=== PATIENT | male | born 1955 | race Caucasian/White ===

== ENCOUNTER → 2019-11-23 | Outpatient (CLI) | payer OTHER | END | disposition home or self-care (01) | LOC: LABWHC1 10:57 | PROVIDERS: ATTEND Urology | DX: N40.1 Benign prostatic hyperplasia with lower urinary tract symptoms (principal); N13.8 Other obstructive and reflux uropathy | CPT/HCPCS: 36415; 84153 ==

== ENCOUNTER → 2020-10-02 | Outpatient (CLI) | payer OTHER ==
--- NOTE | 2020-10-02 14:51 | ECHOS ---
STRESS ECHOCARDIOGRAM DATE OF SERVICE: INDICATIONS: Abnormal EKG BASELINE HEART RATE: 68 BASELINE BLOOD PRESSURE: 136/67 MAXIMUM HEART RATE: 142 MAXIMUM BLOOD PRESSURE: 207/78 85% MPHR: 133 100% MPHR: 156 METS: 10.5 MAXIMUM STAGE REACHED: III TOTAL EXERCISE TIME: 9:10 RESULTS: Baseline rhythm is a sinus mechanism, rate of 68, normal axis and intervals. Normal echocardiogram. Baseline blood pressure 136/67 mmHg. Patient exercised on Zion protocol for 9 minutes 10 seconds reaching peak rate 142 beats per minute which is equal to 90% maximum predicted heart rate. Peak blood pressure 203/87 mmHg. The test was terminated secondary to fatigue. There was no chest pain. Electrocardiograph monitoring revealed no evidence of diagnostic ischemic ST deviation. FINDINGS: Baseline echocardiogram revealed normal wall motion. At peak exercise, there was normal wall motion augmentation with no hypokinesis or dyskinesis. CONCLUSION: 1. Good exercise tolerance with normal electrocardiograph response to exercise. 2. Normal stress echocardiogram with no evidence of stress-induced ischemia. MMODL / IJN: [id number] /
== END | disposition home or self-care (01) ==
LOC: RADNMMAIN 09:10
PROVIDERS: ATTEND Family Medicine
DX: R94.31 Abnormal electrocardiogram [ECG] [EKG] (principal)
CPT/HCPCS: 93351

== ENCOUNTER 2021-11-26 17:10 | Emergency (ER) | payer BC, MEDICARE ==
[2021-11-26 17:29] VITALS: RESP 18; TEMP 98
--- NOTE | 2021-11-26 18:09 | ED ---
General Adult HPI - General Chief complaint: Urogenital Stated complaint: Male , unable to urinate Time Seen by Provider: 11/26/21 17:32 Source: patient, RN notes reviewed Mode of arrival: ambulatory - History of Present Illness Initial comments: 66-year-old male history of prostate issues in the past and does follow with urology for elevated PSA levels presents with urinary retention. Patient states she's had issues in the past but not as severe is able to calm these retention issues on his own. He's never had a catheter. He has had workup by urology and states that they did find a small mass that is not require intervention at that time. He denies fever. He had lower abdominal pain and was unable to urinate over the past 24 hours. - Related Data Allergies Allergy/AdvReac Type Severity Reaction Status Date / Time No Known Allergies Allergy Verified 11/26/21 17:29 Review of Systems ROS Statement: Those systems with pertinent positive or pertinent negative responses have been documented in the HPI. ROS Other: All systems not noted in ROS Statement are negative. Past Medical History Past Medical History: No Reported History, Prostate Disorder History of Any Multi-Drug Resistant Organisms: None Reported Past Surgical History: Appendectomy, Bowel Resection Past Psychological History: No Psychological Hx Reported Smoking Status: Never smoker Past Alcohol Use History: None Reported Past Drug Use History: None Reported General Exam General appearance: alert, in no apparent distress Head exam: Present: atraumatic, normocephalic Eye exam: Present: normal appearance, PERRL ENT exam: Present: normal exam Neck exam: Present: normal inspection. Absent: tenderness, meningismus Respiratory exam: Present: normal lung sounds bilaterally. Absent: respiratory distress, wheezes Cardiovascular Exam: Present: regular rate, normal rhythm GI/Abdominal exam: Present: soft. Absent: distended, tenderness, guarding, rebound Extremities exam: Present: normal inspection, normal capillary refill Neurological exam: Present: alert, oriented X3, CN II-XII intact. Absent: motor sensory deficit Psychiatric exam: Absent: normal affect, normal mood Course Vital Signs 11/26/21 17:25 Temperature 98.0 F Pulse Rate 114 H Respiratory 18 Rate Blood Pressure 187/125 O2 Sat by Pulse 95 Oximetry Medical Decision Making - Medical Decision Making Patient is on Flomax, he has good follow-up with urology, Molina catheter is placed with approximately 1 L output. Urinalysis 13 red cells, no signs of infection, likely secondary to catheterization. He does have good follow-up with urology. He is currently on Flomax. - Lab Data Lab Results 11/26/21 Range/Units 17:55 Urine Color Light Yellow Urine Appearance Clear (Clear) Urine pH 5.5 (5.0-8.0) Ur Specific [place] 1.008 (1.001-1.035) Urine Protein Negative (Negative) Urine Glucose (UA) Negative (Negative) Urine Ketones Negative (Negative) Urine Blood Small H (Negative) Urine Nitrite Negative (Negative) Urine Bilirubin Negative (Negative) Urine Urobilinogen <2.0 (<2.0) mg/dL Ur Leukocyte Esterase Negative (Negative) Urine RBC 13 H (0-5) /hpf Urine WBC <1 (0-5) /hpf Urine Bacteria Rare H (None) /hpf Urine Mucus Rare H (None) /hpf Disposition Clinical Impression: Acute retention of urine Disposition: HOME SELF-CARE Condition: Good Instructions (If sedation given, give patient instructions): Urinary Retention in Men (ED), Enlarged Prostate (BPH) (ED) Is patient prescribed a controlled substance at d/c from ED?: No Referrals: None,Stated [Primary Care Provider] - 1-2 days Kulwinder Copeland MD [STAFF PHYSICIAN] - 1-2 days Time of Disposition: 18:08
[2021-11-26 18:15] LABS: Appearance,Urine Clear (Clear); Bacteria,Urine Rare /hpf; Bilirubin,Urine Negative (Negative); Blood,Urine Small (Negative); Color,Urine Light Yellow; Glucose,Urine (UA) Negative (Negative); Ketones,Urine Negative (Negative); Leukocyte Esterase,Urine Negative (Negative); Mucus,Urine Rare /hpf; Nitrite,Urine Negative (Negative); PH, Urine 5.5 (5.0-8.0); Protein,Urine Negative (Negative); RBC,Urine 13 /hpf (0-5); Specific Gravity,Urine 1.008 (1.001-1.035); Urobilinogen,Urine <2.0 mg/dL (<2.0); WBC,Urine <1 /hpf (0-5)
[2021-11-26 19:14] VITALS: BP 154/98; PULSE 98
== END 2021-11-26 18:50 | disposition home or self-care (01) ==
LOC: EC 17:10
DX: R33.9 Retention of urine, unspecified (principal)
CPT/HCPCS: 51702; 81001; 99283

== ENCOUNTER → 2022-01-02 | Outpatient (CLI) | payer MEDICARE ==
--- NOTE | 2022-01-02 08:07 | MR ---
EXAMINATION TYPE: MR Prostate wo/w con DATE OF EXAM: 01/02/2022 COMPARISON: None IMAGE QUALITY: . 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 TECHNIQUE: Examination was performed using a 3T MRI without an endorectal coil. Multiparametric imaging was perf ormed with T2 mutliplanar sequences, axial diffusion weighted imaging and dynamic contrast enhanced i maging, utilizing 7 mL intravenous Gadavist gadolinium contrast. FINDINGS: PROSTATE VOLUME: 6.8 cm SI x 5.2 cm AP x 6.3 cm LR Vol= 116.64 cc PSA DENSITY: 0.12 ng/ml/cc predicted PSA equals 14.00 Markedly enlarged prostate consistent with BPH. Peripheral zone appears within normal limits. Central zone shows right sided heterogeneous 2.1 cm circumscribed encapsulated nodule in the mid segment. No suspicious areas of diminished T2 signal. No restricted diffusion. Seminal vesicles are symmetric and slightly bulky. Prostate capsule is maintained. No adjacent adenop athy is seen. Urinary bladder shows mild wall thickening and trabeculation posteriorly. No suspicious bowel dilatation. No free fluid in the pelvis. Visualized osseous structures are intact. IMPRESSION: Markedly enlarged prostate consistent with BPH. A focus of clinically significant cancer is not identified. Highest Assessment Category: 2 MRI Stage: T1c N0 M0 based on review of pelvic images. False negative rates for MRI range from 5-20% depending on risk profile. Assessment Categories: 1 ? Very low (clinically significant cancer is highly unlikely to be present) 2 ? Low (clinically significant cancer is unlikely to be present) 3 ? Intermediate (the presence of clinically significant cancer is equivocal) 4 ? High (clinically significant cancer is likely to be present) 5 ? Very high (clinically significant cancer is highly likely to be present)
== END | disposition home or self-care (01) ==
LOC: RADMRIMAIN 06:50
PROVIDERS: ATTEND Urology
DX: C61 Malignant neoplasm of prostate (principal); N40.0 Benign prostatic hyperplasia without lower urinary tract symptoms
CPT/HCPCS: 72197; A9585

== ENCOUNTER 2022-07-18 05:05 | Emergency (ER) | payer MEDICARE ==
[2022-07-18 05:13] VITALS: TEMP 98
[2022-07-18 05:58] LABS: Appearance,Urine Clear (Clear); Bilirubin,Urine Negative (Negative); Blood,Urine Trace (Negative); Color,Urine Light Yellow; Glucose,Urine (UA) Negative (Negative); Ketones,Urine Negative (Negative); Leukocyte Esterase,Urine Negative (Negative); Mucus,Urine Rare /hpf; Nitrite,Urine Negative (Negative); PH, Urine 5.5 (5.0-8.0); Protein,Urine Negative (Negative); RBC,Urine 8 /hpf (0-5); Specific Gravity,Urine 1.012 (1.001-1.035); Urobilinogen,Urine <2.0 mg/dL (<2.0); WBC,Urine <1 /hpf (0-5)
--- NOTE | 2022-07-18 06:06 | ED ---
General Adult HPI - General Chief complaint: Urogenital Stated complaint: urine retention Time Seen by Provider: 07/18/22 05:44 Source: patient Mode of arrival: ambulatory Limitations: no limitations - History of Present Illness Initial comments: This is a 67-year-old male with a past mental history including previous BPH presented to the emergency department for acute urinary retention. The patient stated that his last urination in full was approximate 4 PM in the afternoon. The patient did state that he had a for similar to have dribbling of urine and he had worsening abdominal discomfort and fullness. The patient came to the emergency department for further evaluation. The patient has had a urinary catheter in the past but stated that he has a follow-up with his urologist next week. The patient denied any other acute pain or complaints at this time. - Related Data Allergies Allergy/AdvReac Type Severity Reaction Status Date / Time No Known Allergies Allergy Verified 07/18/22 05:09 Review of Systems ROS Statement: Those systems with pertinent positive or pertinent negative responses have been documented in the HPI. ROS Other: All systems not noted in ROS Statement are negative. Past Medical History Past Medical History: Prostate Disorder History of Any Multi-Drug Resistant Organisms: None Reported Past Surgical History: Appendectomy, Bowel Resection Past Psychological History: No Psychological Hx Reported Smoking Status: Never smoker Past Alcohol Use History: None Reported Past Drug Use History: None Reported General Exam Limitations: no limitations General appearance: alert, in distress (In mild distress secondary to urinary retention and abdominal fullness.) Head exam: Present: atraumatic, normocephalic, normal inspection Eye exam: Present: normal appearance, PERRL Pupils: Present: normal accommodation ENT exam: Present: normal exam, normal oropharynx, mucous membranes moist Neck exam: Present: normal inspection, full ROM Respiratory exam: Present: normal lung sounds bilaterally Cardiovascular Exam: Present: regular rate, normal rhythm, normal heart sounds GI/Abdominal exam: Present: soft, tenderness (TTP in the suprapubic region), normal bowel sounds Extremities exam: Present: normal inspection, full ROM Back exam: Present: normal inspection, full ROM Neurological exam: Present: alert, oriented X3, CN II-XII intact Psychiatric exam: Present: normal affect, normal mood Skin exam: Present: warm, dry Course Vital Signs 07/18/22 07/18/22 05:09 06:13 Temperature 98 F Pulse Rate 115 H 90 Respiratory 18 19 Rate Blood Pressure 145/76 135/68 O2 Sat by Pulse 97 99 Oximetry Medical Decision Making - Medical Decision Making Was pt. sent in by a medical professional or institution (TERRA Metcalf, GUIDE DOG MOBILITY INSTRUCTOR, urgent care, hospital, or usp...) When possible be specific @ -No Did you speak to anyone other than the patient for history (EMS, parent, family, police, friend...)? What history was obtained from this source @ -No Did you review nursing and triage notes (agree or disagree)? Why? @ -I reviewed and agree with nursing and triage notes Were old charts reviewed (outside hosp., previous admission, EMS record, old EKG, old radiological studies, urgent care reports/EKG's, usp records)? Report findings @ -No old charts were reviewed Differential Diagnosis (chest pain, altered mental status, abdominal pain women, abdominal pain men, vaginal bleeding, weakness, fever, dyspnea, syncope, headache, dizziness, GI bleed, back pain, seizure, CVA, palpatations, mental health)? @ -Acute urinary retention, BPH, UTI EKG interpreted by me (3pts min.). @ -None X-rays interpreted by me (1pt min.). @ -None done CT interpreted by me (1pt min.). @ -None done U/S interpreted by me (1pt. min.). @ -None done What testing was considered but not performed or refused? (CT, X-rays, U/S, labs)? Why? @ -None What meds were considered but not given or refused? Why? @ -None Did you discuss the management of the patient with other professionals (professionals i.e. TERRA Metcalf, GUIDE DOG MOBILITY INSTRUCTOR, lab, RT, psych nurse, social science analyst, supervisor border department, teacher, air defense artillery officer, case work aide)? Give summary @ -No Was smoking cessation discussed for >3mins.? @ -No Was critical care preformed (if so, how long)? @ -No Were there social determinants of health that impacted care today? How? (Homelessness, low income, unemployed, alcoholism, drug addiction, transportation, low edu. Level, literacy, decrease access to med. care, long term, rehab)? @ -No Was there de-escalation of care discussed even if they declined (Discuss DNR or withdrawal of care, Hospice)? DNR status @ -No What co-morbidities impacted this encounter? (DM, HTN, Smoking, COPD, CAD, Cancer, CVA, ARF, Chemo, Hep., AIDS, mental health diagnosis, sleep apnea, morbid obesity)? @ -Previous BPH Was patient admitted / discharged? Hospital course, mention meds given and route, prescriptions, significant lab abnormalities, going to OR and other pertinent info. @ -The patient was seen and evaluated in emergency department. Physical exam, the patient was in bed in mild distress secondary to suprapubic abdominal fullness and urinary retention. The patient had a bladder scan obtained and was 800 mL. A Molina catheter was placed successfully over 1 L of urine was obtained. The patient had immediate relief of his pain. Urinalysis was also obtained at this time and was within normal limits. The patient continued to remain stable and did arty have a follow-up appointment with his urologist next week. The patient was advised to follow-up with this appointment and to report back to the emergency department if he had worsening pain or distress. The patient was agreeable to this and all his questions were answered appropriately. The patient was discharged home in stable condition with a Molina in place attached to a leg bag. Undiagnosed new problem with uncertain prognosis? @ -No Drug Therapy requiring intensive monitoring for toxicity (Heparin, Nitro, Insulin, Cardizem)? @ -No Were any procedures done? @ -No Diagnosis/symptom? @ -Acute urinary retention, resolved Acute, or Chronic, or Acute on Chronic? @ -Acute Uncomplicated (without systemic symptoms) or Complicated (systemic symptoms)? @ -Uncomplicated Side effects of treatment? @ -No Exacerbation, Progression, or Severe Exacerbation? @ -No Poses a threat to life or bodily function? How? (Chest pain, [place], [place], pneumonia, PE, COPD, DKA, ARF, appy, cholecystitis, CVA, Diverticulitis, Homicidal, Suicidal, threat to staff... and all critical care pts) @ -No - Lab Data Lab Results 07/18/22 Range/Units 05:53 Urine Color Light Yellow Urine Appearance Clear (Clear) Urine pH 5.5 (5.0-8.0) Ur Specific [place] 1.012 (1.001-1.035) Urine Protein Negative (Negative) Urine Glucose (UA) Negative (Negative) Urine Ketones Negative (Negative) Urine Blood Trace H (Negative) Urine Nitrite Negative (Negative) Urine Bilirubin Negative (Negative) Urine Urobilinogen <2.0 (<2.0) mg/dL Ur Leukocyte Esterase Negative (Negative) Urine RBC 8 H (0-5) /hpf Urine WBC <1 (0-5) /hpf Urine Mucus Rare H (None) /hpf Disposition Clinical Impression: Urinary retention Disposition: HOME SELF-CARE Condition: Stable Instructions (If sedation given, give patient instructions): Urinary Retention in Men (ED), Molina Catheter Placement and Care (ED) Is patient prescribed a controlled substance at d/c from ED?: No Referrals: None,Stated [Primary Care Provider] - 1-2 days Kulwinder Copeland MD [STAFF PHYSICIAN] - 07/22/22 Time of Disposition: 06:00
[2022-07-18 06:13] VITALS: BP 135/68; PULSE 90; RESP 19
== END 2022-07-18 06:13 | disposition home or self-care (01) ==
LOC: EC 05:05
DX: R33.9 Retention of urine, unspecified (principal)
CPT/HCPCS: 51702; 51798; 81001; 99283

== ENCOUNTER 2022-07-27 20:03 | Emergency (ER) | payer MEDICARE ==
[2022-07-27 22:18] LABS: Appearance,Urine Clear (Clear); Bilirubin,Urine Negative (Negative); Blood,Urine Negative (Negative); Color,Urine Light Yellow; Glucose,Urine (UA) Negative (Negative); Ketones,Urine Negative (Negative); Leukocyte Esterase,Urine Small (Negative); Mucus,Urine Rare /hpf; Nitrite,Urine Negative (Negative); PH, Urine 5.5 (5.0-8.0); Protein,Urine Negative (Negative); RBC,Urine 1 /hpf (0-5); Specific Gravity,Urine 1.011 (1.001-1.035); Urobilinogen,Urine <2.0 mg/dL (<2.0); WBC,Urine 4 /hpf (0-5)
--- NOTE | 2022-07-27 22:23 | ED ---
General Adult HPI - General Chief complaint: Urogenital Stated complaint: Bladder retention Time Seen by Provider: 07/27/22 21:13 Source: patient, RN notes reviewed, old records reviewed Mode of arrival: ambulatory Limitations: no limitations - History of Present Illness Initial comments: Patient is a 67-year-old male with past medical history remarkable for prostate issues who recently had a Molina catheter removed last presents mostly Department complaining of urinary retention. States he has been unable to urinate for the last day or so. Just a small amount comes out and he feels like he is not urinating enough. Presents as he believes he needs another Molina catheter placed. Nursing staff did place a Molina catheter and had over 1 L of urine returned upon arrival to the department. He denies any acute complaints at this time and states he feels improved. Denies any nausea or vomiting or fevers. No chest pain or shortness of breath. Follows with Dr. Copeland for urology. - Related Data Allergies Allergy/AdvReac Type Severity Reaction Status Date / Time No Known Allergies Allergy Verified 07/27/22 20:15 Review of Systems ROS Statement: Those systems with pertinent positive or pertinent negative responses have been documented in the HPI. Review of Systems: CONST: Denies fever EYES: Denies blurry vision ENT: Denies nasal congestion C/V: Denies Chest pain RESP: Denies shortness of breath GI: Denies abdominal pain : Denies dysuria SKIN: Denies rash. MSK: Denies joint pain. NEURO: Denies headache ROS Other: All systems not noted in ROS Statement are negative. Past Medical History Past Medical History: Prostate Disorder History of Any Multi-Drug Resistant Organisms: None Reported Past Surgical History: Appendectomy, Bowel Resection Past Psychological History: No Psychological Hx Reported Smoking Status: Never smoker Past Alcohol Use History: None Reported Past Drug Use History: None Reported General Exam - General Exam Comments Initial Comments: General: Appears in no acute distress. HEAD: Normal with no signs of head trauma. EYES: EOMI. ENT: Hearing grossly intact. RESPIRATORY: No respiratory distress. C/V: Regular rate and rhythm. ABD: Abdomen is nondistended. : Molina catheter in place, urine is clear and does not appear to be infected. EXT: No obvious deformity. SKIN: No rashes or lesions observed on exposed skin. NEURO: Alert and oriented. Limitations: no limitations Course Vital Signs 07/27/22 07/27/22 20:13 22:35 Temperature 98.3 F 98.0 F Pulse Rate 106 H 85 Respiratory 20 18 Rate Blood Pressure 123/90 160/86 O2 Sat by Pulse 97 99 Oximetry Medical Decision Making - Medical Decision Making Was pt. sent in by a medical professional or institution (, TERRA, AIRPLANE TESTER, urgent care, hospital, or assisted...) When possible be specific @ -No Did you speak to anyone other than the patient for history (EMS, parent, family, police, friend...)? What history was obtained from this source @ -No Did you review nursing and triage notes (agree or disagree)? Why? @ -I reviewed and agree with nursing and triage notes Were old charts reviewed (outside hosp., previous admission, EMS record, old EKG, old radiological studies, urgent care reports/EKG's, assisted records)? Report findings @ -No old charts were reviewed Differential Diagnosis (chest pain, altered mental status, abdominal pain women, abdominal pain men, vaginal bleeding, weakness, fever, dyspnea, syncope, headache, dizziness, GI bleed, back pain, seizure, CVA, palpatations, mental health, musculoskeletal)? @ -BPH, chronic urinary retention. . This list is not all inclusive EKG interpreted by me (3pts min.). @ -None done X-rays interpreted by me (1pt min.). @ -None done CT interpreted by me (1pt min.). @ -None done U/S interpreted by me (1pt. min.). @ -None done What testing was considered but not performed or refused? (CT, X-rays, U/S, labs)? Why? @ -None What meds were considered but not given or refused? Why? @ -None Did you discuss the management of the patient with other professionals (professionals i.e. TERRA Metcalf, AIRPLANE TESTER, lab, RT, psych nurse, hospital social worker, batch freezer operator, teacher, first aid officer, director of casework)? Give summary @ -No Was smoking cessation discussed for >3mins.? @ -No Was critical care preformed (if so, how long)? @ -No Were there social determinants of health that impacted care today? How? (Homelessness, low income, unemployed, alcoholism, drug addiction, transportation, low edu. Level, literacy, decrease access to med. care, [facility], rehab)? @ -No Was there de-escalation of care discussed even if they declined (Discuss DNR or withdrawal of care, Hospice)? DNR status @ -No What co-morbidities impacted this encounter? (DM, HTN, Smoking, COPD, CAD, Cancer, CVA, ARF, Chemo, Hep., AIDS, mental health diagnosis, sleep apnea, morbid obesity)? @ -None Was patient admitted / discharged? Hospital course, mention meds given and route, prescriptions, significant lab abnormalities, going to OR and other pertinent info. @ -Based on the patient's presentation and physical exam, presents with a known history of urinary retention with recent Molina catheter removal requiring placement of Molina catheter which was already performed. Drained greater than 1 L of urine. Denies any abdominal pain, nausea, vomiting. Has no other symptoms. We did obtain a urinalysis which was negative for any acute infection. I discussed results with the patient. He is already on Flomax at home. He will follow up with Dr. Copeland next week. I answered all questions that he had. Strict return precautions discussed. I instructed the patient to follow up with their PCP in the next 1-3 days. I explained that the patient should return to the emergency department if they experience any worsening symptoms. Strict return precautions were discussed with the patient. The patient expressed understanding of these instructions. I answered all questions that the patient had. The patient was discharged home in good condition with their prescriptions and follow up information. Undiagnosed new problem with uncertain prognosis? @ -No Drug Therapy requiring intensive monitoring for toxicity (Heparin, Nitro, Insulin, Cardizem)? @ -No Were any procedures done? @ -No Diagnosis/symptom? @ -Urinary retention, Molina catheter placement Acute, or Chronic, or Acute on Chronic? @ -Acute on chronic Uncomplicated (without systemic symptoms) or Complicated (systemic symptoms)? @ -Uncomplicated Side effects of treatment? @ -No Exacerbation, Progression, or Severe Exacerbation? @ -No Poses a threat to life or bodily function? How? (Chest pain, [place], [place], pneumonia, PE, COPD, DKA, ARF, appy, cholecystitis, CVA, Diverticulitis, Homicidal, Suicidal, threat to staff... and all critical care pts) @ -No - Lab Data Lab Results 07/27/22 Range/Units 21:47 Urine Color Light Yellow Urine Appearance Clear (Clear) Urine pH 5.5 (5.0-8.0) Ur Specific [place] 1.011 (1.001-1.035) Urine Protein Negative (Negative) Urine Glucose (UA) Negative (Negative) Urine Ketones Negative (Negative) Urine Blood Negative (Negative) Urine Nitrite Negative (Negative) Urine Bilirubin Negative (Negative) Urine Urobilinogen <2.0 (<2.0) mg/dL Ur Leukocyte Esterase Small H (Negative) Urine RBC 1 (0-5) /hpf Urine WBC 4 (0-5) /hpf Urine Mucus Rare H (None) /hpf Disposition Clinical Impression: Urinary retention, Molina catheter in place Disposition: HOME SELF-CARE Condition: Good Instructions (If sedation given, give patient instructions): Urinary Retention in Men (ED), Molina Catheter Placement and Care (ED) Is patient prescribed a controlled substance at d/c from ED?: No Referrals: None,Stated [Primary Care Provider] - 1-2 days Kulwinder Copeland MD [STAFF PHYSICIAN] - 1-2 days Time of Disposition: 22:15
[2022-07-27 22:38] VITALS: BP 160/86; PULSE 85; RESP 18; TEMP 98
== END 2022-07-27 22:33 | disposition home or self-care (01) ==
LOC: EC 20:03
DX: R33.8 Other retention of urine (principal)
CPT/HCPCS: 51702; 51798; 81001; 99283; 99284

== ENCOUNTER → 2022-10-10 | Outpatient (CLI) | payer MEDICARE | END | disposition home or self-care (01) | LOC: RADXRMAIN 14:53 | PROVIDERS: ATTEND Urology | DX: Z53.9 Procedure and treatment not carried out, unspecified reason (principal) ==

== ENCOUNTER → 2022-10-10 | Outpatient (CLI) | payer MEDICARE ==
--- NOTE | 2022-10-10 15:29 | XR ---
EXAMINATION TYPE: XR chest 2V DATE OF EXAM: 10/10/2022 3:13 PM COMPARISON: None TECHNIQUE: XR chest 2V Frontal and lateral views of the chest. CLINICAL INDICATION:Male, 67 years old with history of Z01.818; FINDINGS: Lungs/Pleura: There is no evidence of pleural effusion, focal consolidation, or pneumothorax. Pulmonary vascularity: Unremarkable. Heart/mediastinum: Cardiomediastinal silhouette is unremarkable. Musculoskeletal: No acute osseous pathology. Mild degenerative changes of the thoracic spine. Mild le vocurvature of the thoracic spine. IMPRESSION: No acute cardiopulmonary disease/process.
[2022-10-10 20:12] LABS: Blood Urea Nitrogen 18.2 mg/dL (9.0-27.0); Calcium 9.5 mg/dL (8.7-10.3); Carbon Dioxide 24.8 mmol/L (21.6-31.8); Chloride 105 mmol/L (96-109); Glucose 143 mg/dL (70-110); Sodium 140 mmol/L (135-145)
[2022-10-10 20:46] LABS: Appearance,Urine Turbid (Clear); Bacteria,Urine 1+ (None Seen); Bilirubin,Urine Negative (Negative); Blood,Urine Large (Negative); Calcium Oxalate Crystals,Urine Present (None Seen); Color,Urine Yellow (Yellow); Ketones,Urine Trace (Negative); Nitrite,Urine Positive (Negative); PH, Urine 5.5; Specific Gravity,Urine 1.023 (1.001-1.030)
[2022-10-10 21:17] LABS: Basophils # (A) 0.04 X 10*3/uL (0.00-0.10); Basophils % (A) 0.4 %; Eosinophils # (A) 0.45 X 10*3/uL (0.04-0.35); HCT 43.6 % (39.6-50.0); HGB 14.3 d/dL (13.0-17.0); Lymphocytes # (A) 1.47 X 10*3/uL (0.90-5.00); Lymphocytes % (A) 16.2 %; MCH 29.2 pg (27.0-32.0); MCHC 32.8 d/dL (32.0-37.0); MCV 89.2 FL (80.0-97.0); Mean Platelet Volume 11.2 FL (9.5-12.2); Monocytes # (A) 0.65 X 10*3/uL (0.20-1.00); Monocytes % (A) 7.2 %; NRBC Per 100 WBC 0 X 10*3/uL (0.00-0.01); Neutrophils # (A) 6.44 X 10*3/uL (1.80-7.70); Neutrophils % (A) 70.9 %; Platelet Count 175 X 10*3/uL (140-440); RBC 4.89 X 10*6/uL (4.40-5.60); WBC 9.08 X 10*3/uL (4.50-10.00)
== END | disposition home or self-care (01) ==
LOC: LABPAT 14:08
PROVIDERS: ATTEND Urology
DX: Z01.818 Encounter for other preprocedural examination (principal); C61 Malignant neoplasm of prostate; R35.0 Frequency of micturition
CPT/HCPCS: 71046; 80048; 81001; 85025; 87086

== ENCOUNTER 2022-10-17 05:54 | Day surgery (SDC) | payer MEDICARE ==
--- NOTE | 2022-10-08 11:56 | P.HPIHPCON ---
History of Present Illness H&P Date: 10/08/22 Chief Complaint: Prostate cancer, urinary retention This is a 67-year-old male with history of [place] 6 prostate cancer, and urinary retention, failed multiple trials was despite medical therapy. He does have history 116 g prostate. Discussed with him given his prostate size, and previous abdominal surgeries he is at high risk of complication. Aware of the risk which includes but not limited to bleeding, infection, urinary incontinence, erectile dysfunction, strictures. Aware also of the risk of injury to nearby organs which includes but not limited to the rectum, bowel and bladder. Discussed also if there is significant adhesions then I might not be able to perform the surgery. He understood all the risk and agreed to proceed Consent for Procedure: I have explained the operation/procedure to the patient, including the risks, be nefits, side effects, alternative therapies (including not receiving the proposed treatment or service), the likelihood of the patient achieving his/her goals, and potential recuperation problems for the procedure/sedation/analgesia, as well as any blood products, if indicated. I also explained to the patient the risks, benefits and side effects of the alternatives, as well as the risks related to not receiving the proposed procedure, care, treatment, or services. Past Medical History Past Medical History: Prostate Disorder History of Any Multi-Drug Resistant Organisms: None Reported Past Surgical History: Appendectomy, Bowel Resection Past Psychological History: No Psychological Hx Reported Smoking Status: Never smoker Past Alcohol Use History: None Reported Past Drug Use History: None Reported Medications and Allergies Allergies Allergy/AdvReac Type Severity Reaction Status Date / Time No Known Allergies Allergy Verified 07/27/22 20:15 Surgical - Exam - General no distress, no pain - Eyes normal ocular movement, no pale - ENT normal nares, normal mucosa - Respiratory normal expansion, normal respiratory effort - Abdomen Abdomen: soft, non tender Assessment and Plan Assessment: Or for robotic radical prostatectomy
[2022-10-17] MEDS ORDERED: ONDANSETRON 4 MG/2 ML VIAL IVP ONE (06:12)
[2022-10-17] MEDS ORDERED: DEXAMETHASONE SOD PHOSPHATE 4 MG/ML 1 ML VIAL IV ONE (06:12)
[2022-10-17] MEDS ORDERED: HYDROmorphone 0.5 MG/0.5 ML SYRINGE IVP PRN (06:12)
[2022-10-17] MEDS: LACTATED RINGERS 1,000 ML IV SCH ×3 (06:45→07:32)
[2022-10-17] MEDS ORDERED: MIDAZOLAM 2 MG/2 ML VIAL IVP ONE (07:03)
--- NOTE | 2022-10-17 07:18 | P.ANPRN ---
Procedure Note - Anesthesia - Nerve Block Performed Bilateral Transversus Abdominis Time Out Performed: Yes (0700) Date of Procedure: 10/17/22 Procedure Start Time: 07:00 Procedure Stop Time: 07:10 Location of Patient: PreOp Indication: Acute Post-Operative Pain, Analgesia, Dx/Pain Location, Requested by Surgeon Sedation Type: Sedate with meaningful contact maintained Position: Supine Needle Types: Pajunk Needle Gauge: 21 Ultrasound used to visualize needle placement: Yes Ultrasound used to observe medication spread: Yes Injectate: Other (see comment) (20ml .2% ropivacaine each side) Blood Aspirated: No Pain Paresthesia on Injection Noted: No Resistance on Injection: Normal Image Stored and Saved: Yes Events: Uneventful and Well Tolerated
[2022-10-17] MEDS ORDERED: SODIUM CHLORIDE 0.9% (PF) 10 ML VIAL ONE (07:29)
[2022-10-17] MEDS ORDERED: ROPIVACAINE 5 MG/ML 30 ML VIAL ONE (07:29)
[2022-10-17] MEDS ORDERED: SUCCINYLCHOLINE CHLORIDE 200 MG/10 ML VIAL IV ONE (07:29)
[2022-10-17] MEDS ORDERED: NEOSTIGMINE 1 MG/ML 10 ML VIAL ONE (07:29)
[2022-10-17] MEDS ORDERED: fentaNYL (PF) 50 MCG/ML 2 ML AMP ONE (07:29)
[2022-10-17] MEDS ORDERED: PHENYLEPHRINE-0.9% NACL SYG 1,000 MCG/10 ML SYRINGE ONE (07:29)
[2022-10-17] MEDS ORDERED: HYDROmorphone (PF) 1 MG/ML ONE (07:29)
[2022-10-17] MEDS ORDERED: MIDAZOLAM 2 MG/2 ML VIAL ONE (07:29)
[2022-10-17] MEDS ORDERED: ROCURONIUM 10 MG/ML (5 ML VIAL) IV ONE (07:29)
[2022-10-17] MEDS ORDERED: GLYCOPYRROLATE 0.2 MG/ML 2 ML VIAL ONE (07:29)
[2022-10-17] MEDS ORDERED: LIDOCAINE 2% INJ 20 MG/ML (2 ML VIAL) ONE (07:29)
[2022-10-17] MEDS ORDERED: PROPOFOL 10 MG/ML 20 ML VIAL IV ONE (07:29)
[2022-10-17] MEDS ORDERED: BUPIVACAINE (PF) 0.25% 30 ML VIAL SQ ONE ×2 (07:34→11:26)
[2022-10-17] MEDS ORDERED: HYDROmorphone 1 MG/ML 1 ML SYRINGE IVP PRN (07:50)
[2022-10-17] MEDS ORDERED: LACTATED RINGERS 1,000 ML IV ONE ×2 (10:28→11:08)
--- NOTE | 2022-10-17 11:51 | P.OP ---
Date of Procedure: 10/17/22 Preoperative Diagnosis: Prostate cancer, urinary retention Postoperative Diagnosis: Same Procedure(s) Performed: Robotic radical prostatectomy, extensive lysis of adhesion Implants: none Anesthesia: CLIFFA Surgeon: Kulwinder Copeland Estimated Blood Loss (ml): 150 Pathology: other (Prostate, bilateral seminal vesicle) Condition: stable Disposition: PACU Indications for Procedure: This is a 67-year-old male with history of [place] 6 prostate cancer, and ur inary retention, failed multiple trials was despite medical therapy. He does have history 116 g prostate. Discussed with him given his prostate size, and previous abdominal surgeries he is at high risk of complication. Aware of the risk which includes but not limited to bleeding, infection, urinary incontinence, erectile dysfunction, strictures. Aware also of the risk of injury to nearby organs which includes but not limited to the rectum, bowel and bladder. Discussed also if there is significant adhesions then I might not be able to perform the surgery. He understood all the risk and agreed to proceed Operative Findings: Extensive small bowel adhesions along the anterior abdominal wall, and the right lower quadrant Description of Procedure: After preoperative antibiotics were started, the patient was taken to the operating room. Anesthesia was induced and the patient was placed in a low lithitomy position, with adequate padding of the pressure points, shoulders, back, legs and arms. He was then prepped and draped in the standard fashion. A critical pause was performed using two patient identifiers. A 16F holm catheter was placed to gravity drainage. Next incision was made superior to the umbilicus, at the location of the patient's previous incisions. Next dissection was carried down to the fascia. Next the fascia was incised sharply. entry to the peritoneum was performed using Metzenbaum scissors. After obtaining access into peritoneal cavity, omental fat that was adherent to the anterior abdominal wall was dissected down using finger dissection. The peritoneal incision was incised further, and adhesions involving the omentum was taken down further. At this time the gel point place. pneumoperitoneum was achieved. . Laparoscopy was performed which showed no evidence of bleeding, or any bowel injury, there was extensive adhesion involving the right lower quadrant, and the anterior abdominal wall below the umbilicus. Under direct vision a 8mm robotic ports was placed lateral to each rectus slightly below the camera port. The left iliac fossa 8mm port was placed. The right assistant cook right iliac fossa 12mm port and right paramedian 5mm portwere placed. After the patient was placed in the trendelenberg position, the robot was then docked to the 8mm robotic ports and then each robotic arm and tower was checked in relation to the patient's legs and hands to avoid inadvertent compression. The peritoneal cavity was inspected. At this time extensive lysis of adhesions was performed to take down the adhesions along the right lower quadrant, and it midline. More than 45 minutes was spent lysing adhesions. After adhesions were taken down, An inverted U-shaped incision began laterally to the left medial umbilical ligament and extended high across the midline to the right umbilical ligament. The limbs of the "U" extended to the level of the vasa on both sides. We next developed the preperitoneal space and the space of Retzius. Cautery was used to dissected the bladder away from the prostate. After the anterior bladder neck was incised and the bladder entered the the posterior bladder neck was exposed and the ureteral orifces identified. The posterior bladder neck was then incised and dissected away from the prostate. The vas and the seminal vesicles were now exposed and dissected to their insertions into the prostate and were not spared. The posterior layer of the Denonvillier's fascia was incised to enter david the plane between prostate and perirectal fat. Each lateral pedicle was controlled with vessel sealer, complete nerve preservation was performed bilaterally The puboprostatic ligament was incised where it inserted into the apex of the prostate and a plane between urethra and dorsal venous complex developed to expose the anterior urethral surface. The anterior wall of the urethra was transected with the cut setting a few millimeters distal to the apex of the prostate. The dorsal vein was ligated using 3-0 V lock The urethrovesical anastomosis was performed . the posterior denovillers was reapproximated using 3-0 V lock. A 9 and 9 inch 3-0 V-Lock suture was used to anastomose the urethra and bladder, starting at the 6:00 posterior position. Mucosa was secured in every stitch, to ensure a mucosa to mucosa anastomosis. The stitch was regularly cinched and the anastomosis tightened. Care was taken to not violate the ureteral orifices. The Holm catheter was advanced, the bladder filled, and the anastomosis was tested, as described above. Anastomsis was watertight at 150 mL The periumbilical fascia was closed with 1-0-PDS suture in running fashion. All ports were closed with a subcuticular 4-0 monocryl and Dermabond. Sponge, instrument, and needle counts were correct at the end of the case x2. All specimens including prostate and lymph nodes were sent to pathology for diagnosis and will be available in a week. The patient tolerated the surgery well and without complication. He awoke without difficulty and was taken to the recovery room in stable condition
[2022-10-17] MEDS: KETOROLAC 15 MG/ML 1 ML VIAL IVP SCH ×2 (13:17→17:46)
[2022-10-17] MEDS: D5-0.45% NACL WITH KCL 20MEQ/L 1,000 ML IV SCH ×2 (15:31→23:13)
[2022-10-17] MEDS: HEPARIN SODIUM,PORCINE 5,000 UNIT/ML 1 ML VIAL SQ SCH (16:12)
[2022-10-17] MEDS: ONDANSETRON 4 MG/2 ML VIAL IVP PRN (16:16)
[2022-10-18] MEDS: D5-0.45% NACL WITH KCL 20MEQ/L 1,000 ML IV SCH ×2 (00:28→11:38)
[2022-10-18] MEDS: ONDANSETRON 4 MG/2 ML VIAL IVP PRN ×2 (00:29→07:32)
[2022-10-18] MEDS: HEPARIN SODIUM,PORCINE 5,000 UNIT/ML 1 ML VIAL SQ SCH ×3 (00:29→18:23)
[2022-10-18] MEDS: KETOROLAC 15 MG/ML 1 ML VIAL IVP SCH ×3 (01:50→11:37)
[2022-10-18 13:21] VITALS: BP 167/73; PULSE 88; RESP 17; TEMP 98.8
[2022-10-18] MEDS ORDERED: HYDROcodone/APAP 5-325MG 1 EACH TAB PO STA (15:01)
--- NOTE | 2022-10-18 15:12 | P.DS ---
Providers Attending physician: Kulwinder Copeland MD Primary care physician: [facility] Course: This is a 67 yo male with hx of [place] 6 (3+3) prostate cancer underwent robotic prostatecomy on 10/17. Please see op note dated 10/17 for surgery details. He was admitted to the hospital post operatively. He was discharged home on POD #1. at time of discharge he was tolerating diet, ambulating and pain was controlled. Plan - Discharge Summary Discharge Rx Participant: Yes New Discharge Prescriptions: No Action Cholestyramine (with Sugar) [Cholestyramine Packet] 2 gm PO DAILY Discharge Medication List Cholestyramine (with Sugar) [Cholestyramine Packet] 2 gm PO DAILY 10/09/22 [History]
== END 2022-10-18 16:48 ==
LOC: OR 05:54 → 4SSUR 11:33 → OR 10-18 16:48
PROVIDERS: ATTEND Urology
DX: C61 Malignant neoplasm of prostate (principal); R33.9 Retention of urine, unspecified; Z85.46 Personal history of malignant neoplasm of prostate
CPT/HCPCS: 49329; 53260; 64488; 86900; 86901; 86850; 88307; 88309; J2250; J0330; J1644 ×2; J1100; J2710; J0690 ×2; J2405 ×2; J3010; J1170; J2795; J1885 ×2; J2704; J2001; J2371; J0665